=== PATIENT | male | born 1990 | race Caucasian/White ===

== ENCOUNTER 2020-02-08 19:27 | Emergency (ER) | payer OTHER, SELFPAY ==
[~2020-02-08] VITALS: Ht 180.3 cm; Wt 86.2 kg
[2020-02-08 19:28] VITALS: Ht 180.3 cm; Wt 86.2 kg
[2020-02-08 20:03] VITALS: BP 128/87
== END 2020-02-08 20:03 | disposition home or self-care (01) ==
LOC: ED 19:27
DX: R00.0 Tachycardia, unspecified (principal); R50.9 Fever, unspecified; M79.10 Myalgia, unspecified site; J45.909 Unspecified asthma, uncomplicated; Z20.828 Contact with and (suspected) exposure to other viral communicable diseases; Z88.6 Allergy status to analgesic agent
CPT/HCPCS: U0003-CS

== ENCOUNTER 2020-02-10 19:40 | Emergency (ER) | payer OTHER, SELFPAY ==
[~2020-02-10] VITALS: Ht 180.3 cm; Wt 86.2 kg
[2020-02-10 19:41] VITALS: BP 129/77; Ht 180.3 cm; Wt 86.2 kg
== END 2020-02-10 20:39 | disposition home or self-care (01) ==
LOC: ED 19:40
DX: U07.1 COVID-19 (principal); F17.210 Nicotine dependence, cigarettes, uncomplicated; J45.909 Unspecified asthma, uncomplicated; Z88.6 Allergy status to analgesic agent
CPT/HCPCS: U0003-CS

== ENCOUNTER 2020-07-10 12:50 | Emergency (ER) | payer OTHER ==
[~2020-07-10] VITALS: Ht 180.3 cm; Wt 86.2 kg
[2020-07-10 12:52] VITALS: Ht 180.3 cm; Wt 86.2 kg
[2020-07-10 15:01] VITALS: BP 116/64
== END 2020-07-10 15:01 | disposition home or self-care (01) ==
LOC: ED 12:50
DX: R51.9 Headache, unspecified (principal); J45.909 Unspecified asthma, uncomplicated; Z88.6 Allergy status to analgesic agent